=== PATIENT | male | born 1955 | race Caucasian/White ===

== ENCOUNTER 2020-06-15 20:33 | Emergency (ER) | payer OTHER ==
[~2020-06-15] VITALS: Ht 180.3 cm; Wt 97.5 kg
[~2020-06-15 20:33] MED LIST: BISOPROLOL FUMA10 MG; CIPRO500 MG; LOSARTAN POTASS25 MG; TAMS0.4C
== END 2020-06-15 22:39 | disposition home or self-care (01) ==
LOC: ER 20:33
DX: S42.142A Displaced fracture of glenoid cavity of scapula, left shoulder, initial encounter for closed fracture (principal); V19.9XXA Pedal cyclist (driver) (passenger) injured in unspecified traffic accident, initial encounter; Y93.89 Activity, other specified; Y92.89 Other specified places as the place of occurrence of the external cause; Y99.8 Other external cause status